=== PATIENT | female | born 1950 | race Caucasian/White ===

== ENCOUNTER → 2016-04-16 09:07 | Outpatient (CLI) | payer MEDICARE ==
[2015-02-14 06:00] VITALS: BMI 21.6
[~2016-04-16 09:07] MED LIST: ADVAIR HFA 230-12 GM INH; BAYER ASPIRIN325 MG; COREG12.5 MG PO; ESTRACE2 MG PO; FIORICET/ESGIC1 TAB PO; ISOSORBIDE MONO30 M1 PO; KLOR-CON M2020 MEQ PO; LANOXIN250 MCG PO; LASIX40 MG PO; LORCET PO; PREMARIN1.25 MG PO; PROTONIX20 MG PO; RESTORIL15 MG PO; SOMA350 MG PO; XANAX2 MG PO; ZOCOR80 MG PO; [UNRECOGNIZED DRUG - OTHER]
== END | disposition home or self-care (01) ==
LOC: D.CT 09:07
DX: I71.4 Abdominal aortic aneurysm, without rupture (principal)